=== PATIENT | female | born 1960 | race African-American/Black ===

== ENCOUNTER 2022-01-16 17:29 | Emergency (ER) | payer OTHER ==
[~2022-01-16] VITALS: Ht 157.5 cm; Wt 68.2 kg
[2022-01-16] MEDS ORDERED: LISI-894 PO (17:43)
[2022-01-16] MEDS ORDERED: ASPI81TA43 PO (17:43)
[2022-01-16] MEDS ORDERED: METF-1211 PO (17:43)
[2022-01-16] MEDS: CYCLOBENZAPRINE HCL 10 MG TABLET PO ONE ×2 (18:29→18:41)
[2022-01-16] MEDS: KETOROLAC TROMETHAMINE 30 MG/ML VIAL IM ONE ×2 (18:30→18:39)
[2022-01-16] MEDS: LIDOCAINE 5% TRANSDERMAL PATCH TD ONE ×2 (18:30→18:41)
[2022-01-16 19:05] VITALS: BP 164/83
== END 2022-01-16 19:33 | disposition home or self-care (01) ==
LOC: EMS 17:36
DX: M54.50 Low back pain, unspecified (principal); J45.909 Unspecified asthma, uncomplicated; E11.9 Type 2 diabetes mellitus without complications; E78.00 Pure hypercholesterolemia, unspecified; I10 Essential (primary) hypertension; Z90.49 Acquired absence of other specified parts of digestive tract; Z98.890 Other specified postprocedural states; Z88.0 Allergy status to penicillin; Z91.013 Allergy to seafood
CPT/HCPCS: 99282; 81002; 82962; J1885